=== PATIENT | male | born 1970 | race Caucasian/White ===

== ENCOUNTER 2020-11-21 10:06 | Inpatient (IN) ==
[2020-11-21 11:20] LABS: ABS Lymphocytes 0.4 10^3/ul (1.0-4.8); ABS Monocytes 0.3 10^3/ul (0-0.8); ABS Neutrophils 7.7 10^3/ul (1.5-7.7); Eosinophil % 0.2 %; Hematocrit 45 % (42-52); Hemoglobin 15.7 g/dL (14.0-18.0); Lymphocyte % 5.2 %; Mean Corpuscular HGB Conc 35 g/dL (31-36); Mean Corpuscular Hemoglobin 32 pg (27-31); Mean Corpuscular Volume 92 fL (80-94); Mean Platelet Volume 7.5 fL (7.4-10.4); Nucleated Red Blood Cells % 0.1; Platelet Count 300 10^3/uL (150-450); Red Blood Count 4.85 10^6 /uL (4.18-5.48); Red Cell Distribution Width 13 % (10-15); White Blood Count 8.6 10^3/uL (3.5-10.8)
[2020-11-21 11:41] LABS: Albumin 3.9 g/dL (3.2-5.2); Albumin/Globulin Ratio 1.1 (1-3); Calcium 8.5 mg/dL (8.6-10.3); EGFR African American 78.4 (>60); EGFR Non-African American 64.8 (>60); Globulin 3.6 g/dL (2-4); Potassium 3.8 mmol/L (3.5-5.0); Total Bilirubin 0.8 mg/dL (0.2-1.0); Total Protein 7.5 g/dL (6.4-8.9); Troponin I 0.01 ng/mL (<0.03)
[2020-11-21 11:52] LABS: Urine Appearance Cloudy; Urine Bilirubin Negative (Negative); Urine Blood 1+ (Negative); Urine Color Amber; Urine Glucose Negative (Negative); Urine Ketones Negative (Negative); Urine Nitrite Negative (Negative); Urine Protein 3+(>=500 mg/dL) (Negative); Urine Specific Gravity 1.034 (1.002-1.030); Urine Urobilinogen Negative (Negative)
[2020-11-21 11:54] LABS: Activated Partial Thrombo Time 34.1 seconds (26.0-38.0); INR 1.26 (0.86-1.15)
[2020-11-21 12:06] LABS: Urine Bacteria Absent (Absent); Urine Cellular Casts Present (Absent); Urine Granular Casts Present (Absent); Urine Red Blood Cell Trace(0-2/hpf) (Absent); Urine Squamous Epithelial Cell Present (Absent); Urine White Blood Cell 2+(11-20/hpf) (Absent)
[2020-11-21] MEDS ORDERED: methylPREDNISolone 125 mg 2 ML VIAL IV ONE (13:40)
[2020-11-21] MEDS ORDERED: Remdesivir 100 mg Vial 200 MG in NS 0.9% 250 ml 210 ML IV ONE (14:39)
[2020-11-21] MEDS ORDERED: Albuterol HFA INHALER 8 gm MDI INH PRN (15:39)
[2020-11-21 15:49] LABS: PCO2 Arterial 31 mmHg (35-45); PO2 Arterial 61 mmHg (80-100)
[2020-11-21] MEDS ORDERED: Enoxaparin 40 MG/0.4 ML SYR SUBCUT SCH (16:00)
[2020-11-21] MEDS ORDERED: Albuterol HFA INHALER 8 gm MDI INH SCH ×2 (16:00→18:00)
[2020-11-21] MEDS ORDERED: Iohexol 350 (CONTRAST) 500 ML MDV IV ONE (16:17)
[2020-11-21] MEDS ORDERED: Furosemide 40 mg/4 ml IV VIAL IV SLOW PU ONE (16:42)
[2020-11-21] MEDS ORDERED: Enoxaparin 60 MG/0.6 ML SYR SUBCUT ONE (17:00)
[2020-11-21] MEDS ORDERED: Tocilizumab 200 MG/10 ML 10 ml VIAL IVPB ONE (17:10)
[2020-11-21] MEDS: Azithromycin 500 mg/250 ml NS 500 MG/250 ML BAG IVPB SCH (18:14)
[2020-11-21] MEDS: cefTRIAXone 1 gm/50 mL NS BAG 1 GM/50 ML BAG IVPB SCH (18:14)
[2020-11-21] MEDS: Tocilizumab** 800 MG in NS 0.9% 100 ml BAG 60 ML IVPB ONE ×2 (19:49→19:53)
[2020-11-21] MEDS: methylPREDNISolone SOD 40 mg/ml 1 ml VIAL IV SCH (22:13)
[2020-11-21] MEDS: Albuterol HFA INHALER 8 gm MDI INH SCH (23:00)
[2020-11-22] MEDS: Albuterol HFA INHALER 8 gm MDI INH SCH ×6 (03:19→23:37)
[2020-11-22 05:32] LABS: ABS Lymphocytes 0.4 10^3/ul (1.0-4.8); ABS Monocytes 0.3 10^3/ul (0-0.8); ABS Neutrophils 3.7 10^3/ul (1.5-7.7); Hematocrit 42 % (42-52); Hemoglobin 14.7 g/dL (14.0-18.0); Lymphocyte % 9.8 %; Mean Corpuscular HGB Conc 35 g/dL (31-36); Mean Corpuscular Hemoglobin 32 pg (27-31); Mean Corpuscular Volume 92 fL (80-94); Mean Platelet Volume 7.6 fL (7.4-10.4); Platelet Count 341 10^3/uL (150-450); Red Blood Count 4.56 10^6 /uL (4.18-5.48); Red Cell Distribution Width 13 % (10-15); White Blood Count 4.5 10^3/uL (3.5-10.8)
[2020-11-22 05:37] LABS: INR 1.2 (0.86-1.15)
[2020-11-22 05:50] LABS: Albumin 3.5 g/dL (3.2-5.2); Albumin/Globulin Ratio 0.9 (1-3); C Reactive Protein 149.93 mg/L (<8.01); Calcium 8.4 mg/dL (8.6-10.3); EGFR African American 107.2 (>60); EGFR Non-African American 88.6 (>60); Total Bilirubin 0.5 mg/dL (0.2-1.0); Total Protein 7.5 g/dL (6.4-8.9)
[2020-11-22 06:21] LABS: TSH Ultra Thyroid Stim Horm 0.49 mcIU/mL (0.34-5.60)
[2020-11-22] MEDS: methylPREDNISolone SOD 40 mg/ml 1 ml VIAL IV SCH ×3 (06:34→23:04)
[2020-11-22] MEDS: Enoxaparin 60 MG/0.6 ML SYR SUBCUT SCH ×2 (06:37→17:52)
[2020-11-22] MEDS ORDERED: Dexamethasone IV 4 MG/ML VIAL 1 ml VIAL IV SLOW PU SCH (08:00)
[2020-11-22] MEDS: Aspirin EC 81 mg TAB.EC (enteric coated) PO SCH (08:50)
[2020-11-22] MEDS ORDERED: Buffered Lidocaine 1% SYRIN 1 ml INTRADERM ONE (10:35)
[2020-11-22] MEDS: Remdesivir 100 mg Vial 100 MG in NS 0.9% 250 ml 230 ML IV SCH (14:50)
[2020-11-22] MEDS: cefTRIAXone 1 gm/50 mL NS BAG 1 GM/50 ML BAG IVPB SCH (17:30)
[2020-11-22] MEDS: Azithromycin 500 mg/250 ml NS 500 MG/250 ML BAG IVPB SCH (17:51)
[2020-11-23] MEDS: Albuterol HFA INHALER 8 gm MDI INH SCH ×6 (02:23→22:56)
[2020-11-23] MEDS: Enoxaparin 60 MG/0.6 ML SYR SUBCUT SCH (07:59)
[2020-11-23] MEDS: methylPREDNISolone SOD 40 mg/ml 1 ml VIAL IV SCH ×2 (07:59→16:03)
[2020-11-23] MEDS: Aspirin EC 81 mg TAB.EC (enteric coated) PO SCH (08:01)
[2020-11-23 08:33] LABS: ABS Lymphocytes 0.6 10^3/ul (1.0-4.8); ABS Monocytes 0.8 10^3/ul (0-0.8); ABS Neutrophils 9.1 10^3/ul (1.5-7.7); Hematocrit 44 % (42-52); Lymphocyte % 6.1 %; Mean Corpuscular HGB Conc 34 g/dL (31-36); Mean Corpuscular Hemoglobin 32 pg (27-31); Mean Corpuscular Volume 93 fL (80-94); Mean Platelet Volume 7.9 fL (7.4-10.4); Platelet Count 449 10^3/uL (150-450); Red Blood Count 4.75 10^6 /uL (4.18-5.48); Red Cell Distribution Width 13 % (10-15); White Blood Count 10.6 10^3/uL (3.5-10.8)
[2020-11-23 08:49] LABS: Albumin 3.5 g/dL (3.2-5.2); Albumin/Globulin Ratio 0.9 (1-3); C Reactive Protein 73.4 mg/L (<8.01); Calcium 8.5 mg/dL (8.6-10.3); EGFR African American 122.8 (>60); EGFR Non-African American 101.5 (>60); Globulin 3.8 g/dL (2-4); Magnesium 2.6 mg/dL (1.9-2.7); Phosphorus 3.8 mg/dL (2.5-5.0); Potassium 4.4 mmol/L (3.5-5.0); Total Bilirubin 0.5 mg/dL (0.2-1.0); Total Protein 7.3 g/dL (6.4-8.9)
[2020-11-23 09:22] LABS: INR 1.16 (0.86-1.15)
[2020-11-23] MEDS ORDERED: Enoxaparin 100 MG/ML SYR SUBCUT SCH (11:00)
[2020-11-23] MEDS ORDERED: Enoxaparin 30 MG/0.3 ML SYR SUBCUT ONE (12:37)
[2020-11-23] MEDS ORDERED: Furosemide 40 mg/4 ml IV VIAL IV ONE (13:19)
[2020-11-23] MEDS: Remdesivir 100 mg Vial 100 MG in NS 0.9% 250 ml 230 ML IV SCH (15:18)
[2020-11-23] MEDS: cefTRIAXone 1 gm/50 mL NS BAG 1 GM/50 ML BAG IVPB SCH (18:09)
[2020-11-23] MEDS: Azithromycin 500 mg/250 ml NS 500 MG/250 ML BAG IVPB SCH (18:53)
[2020-11-23] MEDS: Pantoprazole VIAL 40 MG VIAL IV SCH (21:14)
[2020-11-23] MEDS: Enoxaparin 100 MG/ML SYR SUBCUT SCH (21:15)
[2020-11-24] MEDS: methylPREDNISolone SOD 40 mg/ml 1 ml VIAL IV SCH ×4 (00:26→20:44)
[2020-11-24] MEDS: Albuterol HFA INHALER 8 gm MDI INH SCH ×4 (02:55→15:11)
[2020-11-24 07:21] LABS: ABS Lymphocytes 0.7 10^3/ul (1.0-4.8); ABS Monocytes 0.7 10^3/ul (0-0.8); ABS Neutrophils 9.7 10^3/ul (1.5-7.7); Hematocrit 42 % (42-52); Hemoglobin 14.4 g/dL (14.0-18.0); Lymphocyte % 6.4 %; Mean Corpuscular HGB Conc 35 g/dL (31-36); Mean Corpuscular Hemoglobin 32 pg (27-31); Mean Corpuscular Volume 92 fL (80-94); Mean Platelet Volume 7.8 fL (7.4-10.4); Platelet Count 435 10^3/uL (150-450); Red Blood Count 4.52 10^6 /uL (4.18-5.48); Red Cell Distribution Width 13 % (10-15); White Blood Count 11.1 10^3/uL (3.5-10.8)
[2020-11-24 07:32] LABS: Albumin 3.3 g/dL (3.2-5.2); Albumin/Globulin Ratio 0.9 (1-3); C Reactive Protein 28.07 mg/L (<8.01); Calcium 8.5 mg/dL (8.6-10.3); EGFR African American 117.7 (>60); EGFR Non-African American 97.3 (>60); Globulin 3.6 g/dL (2-4); Magnesium 2.5 mg/dL (1.9-2.7); Phosphorus 3.7 mg/dL (2.5-5.0); Potassium 4.4 mmol/L (3.5-5.0); Total Bilirubin 0.5 mg/dL (0.2-1.0); Total Protein 6.9 g/dL (6.4-8.9)
[2020-11-24] MEDS: Enoxaparin 100 MG/ML SYR SUBCUT SCH ×2 (08:22→20:39)
[2020-11-24] MEDS: Pantoprazole VIAL 40 MG VIAL IV SCH ×2 (08:22→20:39)
[2020-11-24] MEDS: Aspirin EC 81 mg TAB.EC (enteric coated) PO SCH (08:23)
[2020-11-24] MEDS: Remdesivir 100 mg Vial 100 MG in NS 0.9% 250 ml 230 ML IV SCH (08:56)
[2020-11-24] MEDS: cefTRIAXone 1 gm/50 mL NS BAG 1 GM/50 ML BAG IVPB SCH (17:34)
[2020-11-24] MEDS: Azithromycin 500 mg/250 ml NS 500 MG/250 ML BAG IVPB SCH (17:34)
[2020-11-25] MEDS: methylPREDNISolone SOD 40 mg/ml 1 ml VIAL IV SCH ×2 (04:34→16:07)
[2020-11-25 05:19] LABS: ABS Lymphocytes 0.8 10^3/ul (1.0-4.8); ABS Monocytes 1.1 10^3/ul (0-0.8); ABS Neutrophils 10.8 10^3/ul (1.5-7.7); Hematocrit 41 % (42-52); Hemoglobin 14.1 g/dL (14.0-18.0); Lymphocyte % 6.5 %; Mean Corpuscular HGB Conc 34 g/dL (31-36); Mean Corpuscular Hemoglobin 31 pg (27-31); Mean Corpuscular Volume 92 fL (80-94); Platelet Count 446 10^3/uL (150-450); Red Blood Count 4.49 10^6 /uL (4.18-5.48); Red Cell Distribution Width 13 % (10-15); White Blood Count 12.8 10^3/uL (3.5-10.8)
[2020-11-25 05:23] LABS: Albumin 3.3 g/dL (3.2-5.2); Calcium 8.4 mg/dL (8.6-10.3); EGFR African American 136.5 (>60); EGFR Non-African American 112.8 (>60); Globulin 3.3 g/dL (2-4); INR 1.2 (0.86-1.15); Magnesium 2.4 mg/dL (1.9-2.7); Phosphorus 3.1 mg/dL (2.5-5.0); Potassium 4.6 mmol/L (3.5-5.0); Total Bilirubin 0.5 mg/dL (0.2-1.0); Total Protein 6.6 g/dL (6.4-8.9)
[2020-11-25] MEDS ORDERED: Furosemide 40 mg/4 ml IV VIAL IV ONE ×2 (07:44→10:42)
[2020-11-25] MEDS: Aspirin EC 81 mg TAB.EC (enteric coated) PO SCH (08:06)
[2020-11-25] MEDS: Pantoprazole VIAL 40 MG VIAL IV SCH ×2 (08:06→20:25)
[2020-11-25] MEDS: Enoxaparin 100 MG/ML SYR SUBCUT SCH ×2 (08:06→20:24)
[2020-11-25] MEDS: Remdesivir 100 mg Vial 100 MG in NS 0.9% 250 ml 230 ML IV SCH (09:41)
[2020-11-25] MEDS: cefTRIAXone 1 gm/50 mL NS BAG 1 GM/50 ML BAG IVPB SCH (18:34)
[2020-11-25] MEDS: Azithromycin 500 mg/250 ml NS 500 MG/250 ML BAG IVPB SCH (20:26)
[2020-11-26] MEDS: methylPREDNISolone SOD 40 mg/ml 1 ml VIAL IV SCH ×2 (06:40→15:28)
[2020-11-26 07:13] LABS: Hematocrit 44 % (42-52); Hemoglobin 15.1 g/dL (14.0-18.0); Mean Corpuscular HGB Conc 34 g/dL (31-36); Mean Corpuscular Hemoglobin 32 pg (27-31); Mean Corpuscular Volume 92 fL (80-94); Mean Platelet Volume 7.9 fL (7.4-10.4); Platelet Count 513 10^3/uL (150-450); Red Blood Count 4.77 10^6 /uL (4.18-5.48); Red Cell Distribution Width 13 % (10-15); White Blood Count 15.9 10^3/uL (3.5-10.8)
[2020-11-26] MEDS: Pantoprazole VIAL 40 MG VIAL IV SCH ×2 (07:27→21:00)
[2020-11-26] MEDS: Enoxaparin 100 MG/ML SYR SUBCUT SCH ×2 (07:27→20:59)
[2020-11-26] MEDS: Aspirin EC 81 mg TAB.EC (enteric coated) PO SCH (07:28)
[2020-11-26 07:33] LABS: INR 1.14 (0.86-1.15)
[2020-11-26 07:37] LABS: Albumin 3.6 g/dL (3.2-5.2); Albumin/Globulin Ratio 1.1 (1-3); C Reactive Protein 9.17 mg/L (<8.01); Calcium 8.5 mg/dL (8.6-10.3); EGFR African American 122.8 (>60); EGFR Non-African American 101.5 (>60); Globulin 3.2 g/dL (2-4); Magnesium 2.5 mg/dL (1.9-2.7); Phosphorus 3.5 mg/dL (2.5-5.0); Potassium 4.8 mmol/L (3.5-5.0); Total Bilirubin 0.7 mg/dL (0.2-1.0); Total Protein 6.8 g/dL (6.4-8.9)
[2020-11-26] MEDS: Remdesivir 100 mg Vial 100 MG in NS 0.9% 250 ml 230 ML IV SCH (09:23)
[2020-11-26] MEDS ORDERED: Furosemide 40 mg/4 ml IV VIAL IV ONE (09:31)
[2020-11-27] MEDS: methylPREDNISolone SOD 40 mg/ml 1 ml VIAL IV SCH ×2 (05:48→17:56)
[2020-11-27] MEDS: Enoxaparin 100 MG/ML SYR SUBCUT SCH ×2 (09:23→22:06)
[2020-11-27] MEDS: Pantoprazole VIAL 40 MG VIAL IV SCH ×2 (09:23→22:06)
[2020-11-27] MEDS: Aspirin EC 81 mg TAB.EC (enteric coated) PO SCH (09:24)
[2020-11-28] MEDS: methylPREDNISolone SOD 40 mg/ml 1 ml VIAL IV SCH (05:44)
[2020-11-28 05:53] LABS: Hematocrit 45 % (42-52); Hemoglobin 15.4 g/dL (14.0-18.0); Mean Corpuscular HGB Conc 34 g/dL (31-36); Mean Corpuscular Hemoglobin 32 pg (27-31); Mean Corpuscular Volume 93 fL (80-94); Platelet Count 537 10^3/uL (150-450); Red Blood Count 4.88 10^6 /uL (4.18-5.48); Red Cell Distribution Width 12 % (10-15); White Blood Count 19.2 10^3/uL (3.5-10.8)
[2020-11-28 06:07] LABS: Calcium 8.5 mg/dL (8.6-10.3); EGFR African American 130.3 (>60); EGFR Non-African American 107.7 (>60); Magnesium 2.2 mg/dL (1.9-2.7)
[2020-11-28 06:08] LABS: Potassium 5.1 mmol/L (3.5-5.0)
[2020-11-28 06:38] LABS: ABS Basophils 0.1 10^3/ul (0-0.2); ABS Lymphocytes 1.4 10^3/ul (1.0-4.8); ABS Monocytes 1.6 10^3/ul (0-0.8); ABS Neutrophils 16.1 10^3/ul (1.5-7.7); Eosinophil % 0.1 %; Lymphocyte % 7.2 %
[2020-11-28] MEDS ORDERED: Sodium Polystyrene ORAL.SUSP 15 GM/60 ML BTL PO ONE (07:51)
[2020-11-28] MEDS: Pantoprazole VIAL 40 MG VIAL IV SCH ×2 (10:06→20:51)
[2020-11-28] MEDS: Enoxaparin 100 MG/ML SYR SUBCUT SCH ×2 (10:07→20:51)
[2020-11-28] MEDS: Aspirin EC 81 mg TAB.EC (enteric coated) PO SCH (10:07)
[2020-11-29 06:41] LABS: Hematocrit 46 % (42-52); Hemoglobin 15.2 g/dL (14.0-18.0); Mean Corpuscular HGB Conc 33 g/dL (31-36); Mean Corpuscular Hemoglobin 31 pg (27-31); Mean Corpuscular Volume 93 fL (80-94); Mean Platelet Volume 8.1 fL (7.4-10.4); Platelet Count 486 10^3/uL (150-450); Red Blood Count 4.87 10^6 /uL (4.18-5.48); Red Cell Distribution Width 13 % (10-15); White Blood Count 15.7 10^3/uL (3.5-10.8)
[2020-11-29 06:42] LABS: ABS Eosinophils 0.1 10^3/ul (0-0.6); ABS Lymphocytes 2.9 10^3/ul (1.0-4.8); ABS Monocytes 1.6 10^3/ul (0-0.8); Eosinophil % 0.8 %; Lymphocyte % 18.4 %; Nucleated Red Blood Cells % 0.1
[2020-11-29 07:01] LABS: Albumin 3.3 g/dL (3.2-5.2); Albumin/Globulin Ratio 1.2 (1-3); Calcium 8.2 mg/dL (8.6-10.3); EGFR African American 116.1 (>60); Globulin 2.8 g/dL (2-4); Magnesium 2.1 mg/dL (1.9-2.7); Potassium 4.7 mmol/L (3.5-5.0); Total Bilirubin 0.9 mg/dL (0.2-1.0); Total Protein 6.1 g/dL (6.4-8.9)
[2020-11-29] MEDS: Enoxaparin 100 MG/ML SYR SUBCUT SCH (08:51)
[2020-11-29] MEDS: Pantoprazole VIAL 40 MG VIAL IV SCH (08:51)
[2020-11-29] MEDS: Aspirin EC 81 mg TAB.EC (enteric coated) PO SCH (08:51)
[2020-11-29 12:43] VITALS: BP 128/71
== END 2020-11-29 14:00 | disposition home or self-care (01) | DRG 720 ==
LOC: ED 10:06 → ICU 16:54 → MED 11-26 19:33
PROVIDERS: ADMIT Nurse Practitioner Adult Health; ATTEND Student in an Organized Health Care Education/Training Program